=== PATIENT | female | born 1975 | race Caucasian/White ===

== ENCOUNTER 2020-10-27 22:43 | Emergency (ER) | payer OTHER ==
[2020-10-27 23:42] LABS: BILIRUBIN NEGATIVE (NEGATIVE); BLOOD TRACE-INTACT Ery/uL (NEGATIVE); CLARITY CLEAR (CLEAR); COLOR YELLOW (YELLOW); GLUCOSE (U) NORMAL (NORMAL); LEUKOCYTES NEGATIVE Leu/uL (NEGATIVE); NITRITE NEGATIVE (NEGATIVE); PROTEIN NEGATIVE (NEGATIVE); UROBILINOGEN 0.2 mg/dL (0.2-1.0)
[2020-10-27 23:53] LABS: SQUAMOUS EPITHELIAL CELLS RARE
[2020-10-27 23:57] LABS: BASOPHIL 0.9 % (0-2); HCT 43.6 % (37.0-47.0); HGB 14.6 g/dl (12.5-16.0); LYMPHOCYTE 26.6 % (15-48); MCH 28.7 pg (25.0-31.0); MCHC 33.5 g/dL (32.0-36.0); MCV 85.8 fL (78.0-100.0); MONOCYTE 7.1 % (0-12); MPV 11.6 fL (6.0-9.5); NEUTROPHIL 62.3 % (41-80); NRBC 0; PLT 248 K/uL (150-400); RBC 5.08 M/uL (4.20-5.40); RDW 12.5 % (11.5-14.0); WBC 12.2 K/uL (4.0-10.5)
[2020-10-28 00:17] LABS: ALBUMIN 3.4 g/dL (3.4-5.0); BILIRUBIN - TOTAL 0.3 mg/dL (0.2-1.0); BUN/CREAT RATIO (CALC) 20.7 RATIO; CREATININE 0.87 mg/dL (0.51-0.95); GLOBULIN (CALCULATION) 3.8 g/dL; POTASSIUM 4.1 mmol/L (3.5-5.1); TOTAL PROTEIN 7.2 g/dL (6.4-8.2)
[2020-10-28] MEDS ORDERED: PHENERGAN12.5 M1 PO (02:49)
[2020-10-28] MEDS ORDERED: CYCLOBENZAPRINE10 MG PO (02:49)
[2020-10-28] MEDS ORDERED: PERCOCET 5-3251 EACH PO (02:49)
== END 2020-10-28 03:25 | disposition home or self-care (01) ==
LOC: FER 22:43
PROVIDERS: Emergency Medicine Emergency Medical Services
DX: R10.9 Unspecified abdominal pain (principal); M54.9 Dorsalgia, unspecified; E11.9 Type 2 diabetes mellitus without complications; Z87.442 Personal history of urinary calculi; Z90.710 Acquired absence of both cervix and uterus; Z88.1 Allergy status to other antibiotic agents; Z88.5 Allergy status to narcotic agent
CPT/HCPCS: 36415; 80053; 81001; 83605; 84145; 85025; J1170; J1885; J2270; J2405; J7030; Q0169